=== PATIENT | male | born 1955 | race Caucasian/White ===

== ENCOUNTER → 2018-05-18 18:54 | Outpatient (REF) | payer SELFPAY ==
[2018-05-18 19:23] LABS: Add Manual Diff / Slide Review NO; Basophils Percent Auto 0.7 % (0-2); Eosinophils Percent Auto 3.4 % (2-4); Hematocrit 42.7 % (41-53); Hemoglobin 14.7 g/dL (13.5-17.5); Mean Corpuscular HGB Conc 34.5 % (30-36); Mean Corpuscular Hemoglobin 30.8 PG (26-34); Mean Corpuscular Volume 89.3 fL (80-100); Monocytes Percent Auto 6.2 % (3-14); Neutrophils Absolute Auto 4300 /uL (3000-5900); Neutrophils Percent Auto 60.7 % (50-75); Platelet Count 197 X10^3/uL (150-400); Red Blood Cell Count 4.79 X10^6/uL (4.5-5.9); Red Cell Distribution Width 13.2 % (11.6-14.8); White Blood Cell Count 7.1 X10^3/uL (4.5-11.0)
[2018-05-18 19:28] LABS: HEMOLYSIS < 15 (0-50); Iron 80 ug/dL (49-181)
[2018-05-18 19:30] LABS: Alanine Aminotransferase 48 IU/L (21-72); Albumin 4.6 g/dL (3.5-5.0); Albumin Globulin Ratio 1.6 (1.0-2.8); Alkaline Phosphatase 67 U/L (38-126); Aspartate Aminotransferase 33 IU/L (17-59); BUN Creatinine Ratio 21.1 (6-22); Bilirubin Total 0.4 mg/dL (0.2-1.3); Blood Urea Nitrogen 19 mg/dL (9-20); Calcium 9.7 mg/dL (8.4-10.2); Carbon Dioxide 25 mmol/L (22-32); Chloride 106 mmol/L (98-107); Cholesterol 207 mg/dL (140-199); Estimated Glomerular Filt Rate > 60.0 mL/min (>60); Globulin 2.8 g/dL (1.7-4.1); Glucose 91 mg/dL (80-110); HDL Cholesterol 40 mg/dL (40-60); HEMOLYSIS 26 (0-50); LDL Cholesterol Calculated 123 mg/dL (<100); Potassium 4.1 mmol/L (3.4-5.1); Sodium 144 mmol/L (137-145); Total Protein 7.4 g/dL (6.3-8.2); Triglycerides 219 mg/dL (35-150)
[2018-05-18 19:41] LABS: Percent Iron Saturation 21 % (20-50); Total Iron Binding Capacity 383 ug/dL (261-462); Transferrin 318 mg/dL (206-381)
[2018-05-18 19:47] LABS: Free T3, Triiodothyronine Free 3.33 pg/mL (2.77-5.27); Free T4, Direct Thyroxine 0.83 ng/dL (0.78-2.19); Vitamin D 25 Hydroxy (D3) 24.5 ng/mL (30.0-100.0)
[2018-05-18 20:00] LABS: Thyroid Stimulating Hormone 2.45 uIU/mL (0.47-4.68)
[2018-05-18 20:08] LABS: Ferritin 37.8 ng/mL (17.9-464)
[2018-05-18 20:13] LABS: Erythrocyte Sedimentation Rate 1 MM/HR (0-15)
[2018-05-18 20:38] LABS: Folate 10.9 ng/mL (2.76-20.0); Vitamin B12 331 pg/mL (239-931)
== END ==
LOC: LAB 18:54
PROVIDERS: Visit Provider Nurse Practitioner Acute Care
DX: R53.83 Other fatigue (principal)
CPT/HCPCS: 80053; 80061; 82306; 82607; 82728; 82746; 83036; 83540; 83550; 84153; 84439; 84443; 84481; 85025; 85651